=== PATIENT | male | born 1960 | race Caucasian/White ===

== ENCOUNTER 2018-10-07 14:30 | Emergency (ER) | payer MEDICAID ==
[~2018-10-07] VITALS: Ht 172.7 cm; Wt 68.9 kg
[2018-10-07 14:40] VITALS: Ht 172.7 cm; Wt 68.9 kg
[2018-10-07 16:30] VITALS: BP 120/81
== END 2018-10-07 16:29 | disposition home or self-care (01) ==
LOC: ED 14:30
DX: S52.255A Nondisplaced comminuted fracture of shaft of ulna, left arm, initial encounter for closed fracture (principal); V80.010A Animal-rider injured by fall from or being thrown from horse in noncollision accident, initial encounter; Y93.89 Activity, other specified; Y92.89 Other specified places as the place of occurrence of the external cause; Y99.8 Other external cause status
CPT/HCPCS: J1885